=== PATIENT | male | born 1965 | race Caucasian/White ===

== ENCOUNTER 2023-07-22 21:34 | Emergency (ER) | payer BC ==
[~2023-07-22] VITALS: Ht 177.8 cm; Wt 77.1 kg
[2023-07-22 23:42] VITALS: BP 133/85; O2SAT 98
== END 2023-07-22 23:42 | disposition home or self-care (01) ==
LOC: ER 21:46
DX: T16.2XXA Foreign body in left ear, initial encounter (principal); T16.1XXA Foreign body in right ear, initial encounter; Y92.89 Other specified places as the place of occurrence of the external cause
CPT/HCPCS: A4606; A4663